=== PATIENT | male | born 1990 | race Caucasian/White ===

== ENCOUNTER 2016-10-21 20:00 | Inpatient (IN) | payer OTHER ==
--- NOTE | ~2016-10-21 | PN ---
Unit #: [id number] #: [id number] Patient: CORNELIA LYNNE [id number] [facility] [address] [place] [address] [id number] MR#: [id number] NAME: CORNELIA LYNNE ROOM: [facility] Age: 26 Sex: M Admission Date: 10/21/2016 : 1990 Attending Physician: Teja Boles M.D. Admitting Physician: Teja Boles M.D. Primary Care Physician: Primary Care Physician Geraldine GALLAGHER NOTES DATE OF SERVICE 10/22/16 DISCUSSION Mr. Cornelia Lynne is a 26-year-old male seen on 10/22/16. Patient interviewed, chart reviewed, I obtained information from nursing staff. Patient compliant, cooperative. Mood sad, dysphoric, flat affect, guarded. Patient seems somewhat anxious, nervous, sad, depressed. Hygiene and grooming fair. COMPLETE REVIEW OF SYSTEMS Unremarkable. MENTAL STATUS EXAMINATION GENERAL APPEARANCE: Patient dressed casually. ATTENTION SPAN AND CONCENTRATION: Poor. Oriented in place and person. MOOD AND AFFECT: Labile. SPEECH: Monotone. THOUGHT PROCESS: Arnold. Patient denied any thoughts of harming others, but having suicidal ideation, guarded, paranoid. RECENT AND REMOTE MEMORY: Poor. INSIGHT AND JUDGMENT: Poor. DIAGNOSES Major depressive disorder, recurrent, rule out bipolar mood disorder Autism spectrum disorder ASSESSMENT/PLAN Advised to continue with current medication. If needed, consider further adjustment on medication. Dictated by... Amanda Jiang/shanita TD: 10/22/2016 21:54 JOB #: [id number] Unit #: [id number] #: [id number] Patient: CORNELIA LYNNE PROGRESS NOTES Page 1 of 1 X Teja Boles MD PROGRESS NOTE
--- NOTE | ~2016-10-21 | PN ---
Unit #: [id number] #: [id number] Patient: CORNELIA OLSEN [id number] [facility] [address] [place] [address] [id number] MR#: [id number] NAME: CORNELIA OLSEN ROOM: P257 Age: 26 Sex: M Admission Date: 10/21/2016 : 1990 Attending Physician: Teja Boles M.D. Admitting Physician: Teja Boles M.D. Primary Care Physician: Primary Care Physician Geraldine RENAE PROGRESS NOTES DATE 10/26/2016 DISCUSSION Cornelia is a 26-year-old male seen on 10/26/2016. The patient interviewed, chart reviewed. Obtained information from nursing staff. The patient was withdrawn, isolative, flat affect guarded but maintain safe behavior reports medication is helping him. Denied any thoughts of harming self or others. MENTAL STATUS EXAMINATION General appearance, the patient dressed casually. Attention span and concentration fair. Oriented to place and person. Mood and affect labile. Speech monotone. Thought process concrete. The patient denied any thoughts of harming self or others. Recent and remote memory poor. Insight and judgement poor. DIAGNOSES Bipolar mood disorder NOS ADHD combined type Autism spectrum disorder ASSESSMENT/PLAN Advise to continue with current medication with a plan to consider discharge next week if patient continues to make progress. Dictated by... Amanda Jiang/marquis TD: 10/29/2016 01:52 JOB #: [id number] Unit #: [id number] #: [id number] Patient: CORNELIA OLSEN PROGRESS NOTES Page 1 of 1 X Teja Boles MD X PROGRESS NOTE
--- NOTE | ~2016-10-21 | PA ---
Unit #: [id number] #: [id number] Patient: CORNELIA OLSEN [id number] [facility] [address] [place] [address] [id number] MR#: [id number] NAME: CORNELIA OLSEN ROOM: [facility] Age: 26 Sex: M Admission Date: 10/21/2016 : 1990 Date of Assessment: 10/21/2016 Attending Physician: Teja Boles M.D. Admitting Physician: Teja Boles M.D. Primary Care Physician: Primary Care Physician No PSYCHIATRIC ASSESSMENT INFORMANTS The patient's reliability, fair; chart reliability, good. CHIEF COMPLAINT Depression. HISTORY OF PRESENT ILLNESS Mr. Rodriguez is a 26-year-old male, presented with the above-mentioned complaint. The patient reports that he has been diagnosed with depression, autism spectrum disorder/Asperger syndrome. The patient has a history of outpatient treatment. Lives at home with mother, father, and older brother. The patient presented, brought by legal guardian for suicidal ideation with a plan to overdose on his medication. The patient is also having extreme anger issue at the President and current state of the government in general, but no homicidal ideation, this is according to the intake report. The patient did not tell to the fha underwriter. The patient denied any substance abuse. The patient was compliant and cooperative during interview. Denied any use of any drugs or alcohol. Reports that he takes his medications regularly, followed by outpatient psychiatrist. There is a history of depression in mother and father. The patient is currently on Anafranil, Vyvanse, Celexa, Saphris, Namenda. PAST PSYCHIATRIC HISTORY Remarkable for history of outpatient treatment. No history of any inpatient treatment. FAMILY HISTORY AND SOCIAL HISTORY The patient has a good support system. No history of abuse. MEDICAL HISTORY Unremarkable for any chronic medical illness. Musculoskeletal; muscle strength and tone, no atrophy or abnormal movement. Gait normal. MEDICATION HISTORY The patient is on Anafranil, Vyvanse, Celexa, Saphris, Namenda. ALLERGIES No known drug allergies. SUBSTANCE ABUSE HISTORY None. REVIEW OF SYSTEMS Unit #: [id number] #: [id number] Patient: CORNELIA OLSEN HEENT: Eyes, clear. Ears, nose, mouth, and throat; clear. CARDIOVASCULAR: Unremarkable. RESPIRATORY: Unremarkable. GI: Unremarkable. : Unremarkable. SKIN: Unremarkable. LYMPH NODE: Unremarkable. NEUROLOGIC: Unremarkable. ENDOCRINE: Unremarkable. HEMATOLOGIC: Unremarkable. ALLERGIC/IMMUNOLOGIC: Unremarkable. MUSCULOSKELETAL: Muscle strength and tone, no atrophy or abnormal movement. Gait normal. MENTAL STATUS EXAMINATION CONSTITUTIONAL: Measurement of vital signs; temperature 98.2, pulse 91, respirations 16, blood pressure 124/73. Height 5 feet 10 inches. GENERAL APPEARANCE: The patient dressed casually. The patient did not show any facial deformity. MUSCULOSKELETAL: Please see above. PSYCHIATRIC EXAMINATION Description of speech, monotone. Description of thought process, concrete. The patient denied any hallucination, but guarded, paranoid, monotone speech, problem with anger, temper, mood lability, suicidal ideation, denied any homicidal ideation. No substance abuse. Description of the patient's judgment; concerning everyday activity, poor. Social situation, poor. Concerning psychiatric condition, poor. Complete mental status examination; oriented in time, place, and person. Recent and remote memory, fair. Attention span and concentration, fair. Language, able to name object and repeat phrases. Fund of knowledge, aware of current event and passive vocabulary intact. Mood and affect, sad and dysphoric. Insight and judgment, fair to poor. ASSETS AND LIABILITIES Assets; the patient articulate, able to take care of his ADL. Liability; history of depression. ADMITTING DIAGNOSES Psychiatric: Major depressive disorder, recurrent, severe, F33.2; rule out bipolar mood disorder; autism spectrum disorder. Secondary diagnosis: Deferred. Medical diagnosis: None. Stressors: Psychosocial stressors. PSYCHIATRIC PLAN AND TREATMENT GOAL 1. Advised to admit the patient on the inpatient unit. Provide safe, supportive, and structured environment. 2. Ordered labs; CBC, CMP, UA, and UDS. 3. The patient to be monitored for any self-harming behavior. 4. The patient to attend all the programing on the inpatient unit. Advised to resume home medication except advised to stop Vyvanse and Namenda. Advised to increase Saphris to 5 mg b.i.d. and increase Celexa to 40 mg daily. Advised to add Depakote for mood stabilization 500 mg Unit #: [id number] #: [id number] Patient: CORNELIA OLSEN b.i.dOsiel Treatment goal to attain euthymic mood, gain insight into his problem, and learn coping skills. DISCHARGE PLAN Plan to stabilize the patient and consider followup in outpatient program. ESTIMATED LENGTH OF STAY 3 to 5 days. Dictated by... Amanda Jiang/lukas TD: 10/23/2016 01:15 JOB #: [id number] PSYCHIATRIC ASSESSMENT Page 1 of 1 X Teja Boles MD X PSYCHIATRIC ASSESSMENT
--- NOTE | ~2016-10-21 | PN ---
Unit #: [id number] #: [id number] Patient: CORNELIA OLSEN [id number] [facility] [address] [place] [address] [id number] I MR#: [id number] NAME: CORNELIA OLSEN ROOM: P257 Age: 26 Sex: M Admission Date: 10/21/2016 : 1990 Attending Physician: Teja Boles M.D. Admitting Physician: Tjea Boles M.D. Primary Care Physician: Primary Care Physician Geraldine RENAE PROGRESS NOTES DATE OF SERVICE: 10/25/2016 ADDENDUM REVIEW OF SYSTEMS Complete review of systems unremarkable. MENTAL STATUS EXAMINATION General appearance, the patient dressed casually. Hygiene and grooming, somewhat poor. Attention span and concentration, fair. Oriented in place and person. Mood and affect; sad, dysphoric, and flat. Speech, monotone. Thought process, concrete. The patient denied any thoughts of harming self or others. Recent and remote memory, poor. Insight and judgment, poor. DIAGNOSES Bipolar mood disorder, not otherwise specified and autism spectrum disorder. ASSESSMENT AND PLAN Advised to continue with current medication with a plan to start Concerta 18 mg in the morning. If needed, consider further adjustment of medication. The patient is currently on combination of Concerta, Saphris, Celexa, Namenda, Depakote, and . Dictated by... Teja Boles M.D. SZC/modl TD: 10/25/2016 17:41 JOB #: [id number] Unit #: [id number] #: [id number] Patient: CORNELIA OLSEN PROGRESS NOTES Page 1 of 1 X Teja Boles MD PROGRESS NOTE
--- NOTE | ~2016-10-21 | PN ---
Unit #: [id number] #: [id number] Patient: CORNELIA OLSEN [id number] [facility] [address] [place] [address] [id number] I MR#: [id number] NAME: CORNELIA OLSEN ROOM: [facility] Age: 26 Sex: M Admission Date: 10/21/2016 : 1990 Attending Physician: Teja Boles M.D. Admitting Physician: Amanda Jiang NOTES DATE OF SERVICE: 10/24/2016 DISCUSSION Mr. Rodriguez is a 26-year-old male, seen on 10/24/2016. The patient compliant and cooperative. Mood, sad and dysphoric. Flat affect. Answered questions appropriately. The patient still having symptoms of depression. Reported having lot of difficulty with focusing and concentration without Vyvanse. REVIEW OF SYSTEMS Complete review of systems unremarkable. MENTAL STATUS EXAMINATION General appearance, the patient dressed casually. Attention span and concentration, poor. Oriented in place and person. Mood and affect; labile, flat, sad, and dysphoric. Speech, monotone. Thought process, concrete. The patient denied any thoughts of harming self or others or any psychotic symptom. Recent and remote memory, poor. Insight and judgment, poor. DIAGNOSES Bipolar mood disorder, not otherwise specified; autism spectrum disorder; and attention-deficit hyperactivity disorder, combined type. ASSESSMENT AND PLAN Advised to continue with current medication with a plan to give a trial with lowest dose of Vyvanse 20 mg daily and monitor for any side effect, psychosis, and depression. Dictated by... Amanda Jiang/lukas TD: 10/24/2016 18:59 JOB #: [id number] Unit #: [id number] #: [id number] Patient: CORNELIA OLSEN BRITTARCHIE ELLIOTT NOTES Page 1 of 1 X Teja Boles MD PROGRESS NOTE
--- NOTE | ~2016-10-21 | PN ---
Unit #: [id number] #: [id number] Patient: CORNELIA OLSEN [id number] [facility] [address] [place] [address] [id number] I MR#: [id number] NAME: CORNELIA OLSEN ROOM: P257 Age: 26 Sex: M Admission Date: 10/21/2016 : 1990 Attending Physician: Teja Boles M.D. Admitting Physician: Teja Boles M.D. Primary Care Physician: Primary Care Physician Geraldine RENAE PROGRESS NOTES DATE 10/24/2016 DISCUSSION Cornelia is a 46-year-old male seen on 10/24/2016. Patient interviewed, chart reviewed, obtained information from nursing staff. Patient answered questions in a monotone voice. Flat affect. Poor eye contact. Reports feeling better. The patient will start Concerta today. Dictated by... Amanda Jiang/mirella TD: 10/27/2016 13:19 JOB #: [id number] [facility] PROGRESS NOTES Page 1 of 1 X Teja Boles MD PROGRESS NOTE
--- NOTE | ~2016-10-21 | HP ---
Unit #: [id number] #: [id number] Patient: CORNELIA OLSEN [id number] [place] [address] [id number] I MR#: [id number] NAME: CORNELIA OLSEN ROOM: [facility] Age: 26 Sex: M Admission Date: 10/21/2016 : 1990 Attending Physician: Teja Boles M.D. Admitting Physician: Teja Boles M.D. Primary Care Physician: Primary Care Physician No HISTORY AND PHYSICAL HISTORY OF PRESENT ILLNESS Cornelia is a 26 year old admitted to [address] [place] [address] with depression and verbalizing wanting to hurt himself. PAST MEDICAL HISTORY 1. High blood pressure 2. Asperger's PAST SURGICAL HISTORY Nothing reported ALLERGIES No known drug allergies. SOCIAL HISTORY He denies cigarettes, alcohol and illicit drug use. FAMILY HISTORY Medically noncontributory. REVIEW OF SYSTEMS CONSTITUTIONAL: No fever or chills. HEENT: Denies any sore throat, ear pain or runny nose. CARDIOVASCULAR: Denies chest pain, irregular heart rhythm or palpitations. CHEST: Denies shortness of breath or cough. No hemoptysis. GASTROINTESTINAL: Denies nausea, vomiting, diarrhea or chronic constipation. ENDOCRINE: Denies history of increased thirst or urination. No recent significant weight loss or gain. GENITOURINARY: Denies dysuria, frequency, or hematuria. SKIN: Denies any rashes. HEMATOLOGIC: Denies history of increased bleeding or bruising. MUSCULOSKELETAL: Denies any hot, swollen joints. No generalized muscle pain. NEUROLOGIC: Denies problems with vision or speech. No frequent, severe headaches. No numbness, tingling or weakness in any extremities. Denies loss of bladder or bowel control. CURRENT MEDICATIONS 1. Celexa 40 mg q day 2. Namenda 20 mg q.a.m. (?) 3. Saphris 5 mg b.i.d. Unit #: [id number] #: [id number] Patient: CORNELIA OLSEN 4. Depakote 500 mg b.i.d. 5. Vasotec 10 mg q day 6. Milk of Magnesia p.r.n. 7. Maalox p.r.n. 8. Tylenol p.r.n. PHYSICAL EXAMINATION GENERAL: Alert, obese, in no apparent distress. VITAL SIGNS: Blood pressure 124/72, heart rate 90, respirations 16, temperature 98.6. WEIGHT: Not recorded. HEIGHT: 5 foot 10 inches. SKIN: Warm and dry without rash or lesion. HEENT: Normocephalic. TMs not viewed. Oral and nasal passages clear. Conjunctivae clear. Pupils equal, round and reactive to light and accommodation. Extraocular movements intact. NECK: Supple without lymphadenopathy or thyromegaly. HEART: Regular rate and rhythm without murmur. LUNGS: Clear. ABDOMEN: Soft, nontender. : Not done. EXTREMITIES: No evidence of cyanosis, clubbing or edema. Moves all extremities without focal deficit. NEUROLOGICAL: Grossly within normal limits. Cranial Nerves: II: Visual mcmahan are intact. III, IV AND : Extraocular movements are intact. Pupils are equal, round and reactive to light. V: Facial sensation is grossly normal. VII: Facial movements and expression are normal. VIII: Auditory acuity grossly intact. IX, X: Uvula is midline. Phonation is normal. XI: Patient shrugs shoulders and turns head normally. XII: Tongue protrudes in the midline. Sensory and Motor Function: Sensory and motor sensation is grossly normal. Motor: moves all extremities well. Coordination: Gait is normal. Deep Tendon Reflexes: Intact. IMPRESSION Psychiatric admission RECOMMENDATIONS PSYCHIATRIC: Per psychiatrist. MEDICAL: I see no contraindications to participating in facility's activities. MEDICAL PROGNOSIS Good. MEDICAL CONDITION Stable. Dictated by... Susy Armando P.A.-C. for Teo Guevara M.D. Unit #: [id number] #: [id number] Patient: CORNELIA OLSEN ANGIE/marquis TD: 10/22/2016 23:56 JOB #: [id number] HISTORY AND PHYSICAL Page 1 of 1 X Susy Armando HISTORY AND PHYSICAL
--- NOTE | ~2016-10-21 | PN ---
Unit #: [id number] #: [id number] Patient: CORNELIA OLSEN [id number] [facility] [address] [place] [address] [id number] I MR#: [id number] NAME: CORNELIA OLSEN ROOM: P257 Age: 26 Sex: M Admission Date: 10/21/2016 : 1990 Attending Physician: Teja Boles M.D. Admitting Physician: Teja Boles M.D. Primary Care Physician: Primary Care Physician Geraldine RENAE PROGRESS NOTES DATE 10/27/2016 DISCUSSION Mr. Rodriguez is a 26-year-old male seen on 10/27/2016. The patient making progress tolerating medication fairly well reports Concerta helped him. Continues to be isolative, guarded, flat affect. Complete review of systems unremarkable. MENTAL STATUS EXAMINATION General appearance, the patient dressed casually. Attention span and concentration fair. Oriented to place and person. Mood and affect labile. Speech monotone. Thought process concrete. The patient denied any thoughts of harming self or others. Recent and remote memory poor. Insight and judgement poor. DIAGNOSES 1. Bipolar mood disorder NOS 2. Autism spectrum disorder ASSESSMENT/PLAN Advise to continue with current medication and therapeutic protocol. If needed consider further adjustment of medication. Dictated by... Amanda Jiang/marquis TD: 10/30/2016 02:53 JOB #: [id number] Unit #: [id number] #: [id number] Patient: CORNELIA OLSEN PROGRESS NOTES Page 1 of 1 X Teja Boles MD PROGRESS NOTE
--- NOTE | ~2016-10-21 | PN ---
Unit #: [id number] #: [id number] Patient: CORNELIA OLSEN [id number] [facility] [address] [place] [address] [id number] I MR#: [id number] NAME: CORNELIA OLSEN ROOM: [facility] Age: 26 Sex: M Admission Date: 10/21/2016 : 1990 Attending Physician: Teja Boles M.D. Admitting Physician: Teja Boles M.D. Primary Care Physician: Primary Care Physician Geraldine GALLAGHER NOTES DATE OF SERVICE: 10/23/2016 DISCUSSION Mr. Rodriguez is a 46-year-old male, seen on 10/23/2016. The patient interviewed, chart reviewed, and obtained information from nursing staff. The patient was guarded, paranoid, withdrawn, isolative, but able to maintain safe behavior. The patient is tolerating medication fairly well, currently on Depakote. Talked to the patient's mom over the phone and explained about his treatment. The patient's family was ordered a regular visitation. No side effects from medication. REVIEW OF SYSTEMS Complete review of systems unremarkable. MENTAL STATUS EXAMINATION General appearance; the patient dressed casually. Attention span and concentration, poor. Oriented in place and person. Mood and affect; sad, dysphoric, flat. Speech, monotone. Thought process, concrete. The patient denied any thoughts of harming self or others, but still somewhat guarded, withdrawn, isolative, paranoid. Recent and remote memory, poor. Insight and judgment, poor. DIAGNOSES 1. Bipolar mood disorder, not otherwise specified. 2. History of attention deficit hyperactivity disorder, combined type. 3. Autism spectrum disorder. ASSESSMENT/PLAN Advised to continue with current medication and therapeutic protocol. If needed, consider further adjustment of medication and check Depakote and ammonia level on Friday. If needed, consider low dose of Concerta or Vyvanse, but we will try to avoid as per as possible. Dictated by... Amanda Jiang/eliseol TD: 10/23/2016 23:42 JOB #: [id number] Unit #: [id number] #: [id number] Patient: CORNELIA OLSEN [facility] PROGRESS NOTES Page 1 of 1 X Teja Boles MD PROGRESS NOTE
--- NOTE | ~2016-10-21 | DS ---
Unit #: [id number] #: [id number] Patient: CORNELIA OLSEN [id number] [facility] [address] [place] [address] [id number] MR#: [id number] NAME: CORNELIA OLSEN ROOM: [facility] Age: 26 Sex: M Admission Date: 10/21/2016 : 1990 Discharge Date: 10/28/2016 Attending Physician: Teja Boles M.D. Primary Care Physician: Primary Care Physician No DISCHARGE SUMMARY REASON FOR ADMISSION Psychosis, mood lability. HOSPITAL COURSE The patient was admitted to inpatient unit on 10/21/2016 and discharged on 10/28/2016. The patient was treated on the inpatient unit with group therapy, medication management, family therapy, and structured milieu. The patient was responsive to the medication and showed improvement. Subsequently, the patient was discharged with a plan to follow up in outpatient program. DISCHARGE MEDICATIONS Vasotec 10 mg daily for hypertension, Celexa 40 mg daily for depression, Depakote 500 mg b.i.d. for mood stabilization, Saphris 10 mg sublingual at bedtime for psychosis, and Concerta 18 mg in the morning for ADHD symptoms. DISCHARGE DIAGNOSES Psychiatric: Mood disorder, recurrent, depressed, F31.9; autism spectrum disorder, F84.0. Secondary diagnosis: Deferred. Medical diagnosis: None. Stressors: Psychosocial stressors. DISCHARGE INSTRUCTIONS The patient to follow up in outpatient clinic as per social media senior associate. CONDITION ON DISCHARGE The patient was pleasant and cooperative. Denied any psychotic symptom or any suicidal ideation. PROGNOSIS Guarded. DIET AND ACTIVITY As tolerated. Dictated by... Teja Boles M.D. Unit #: [id number] #: [id number] Patient: CORNELIA OLSEN SZC/modl TD: 10/29/2016 20:07 JOB #: [id number] DISCHARGE SUMMARY Page 1 of 1 X Teja Boles MD X DISCHARGE SUMMARY
[2016-10-22 09:41] LABS: BASOPHIL% 0.4 % (0-2.5); EOSINOPHIL# 0.1 X10e3 (0-0.7); EOSINOPHIL% 1.5 % (0.0-7.0); HEMATOCRIT 44.2 % (38.0-50.0); HEMOGLOBIN 14.6 gm/dL (13.0-16.0); LYMPHOCYTE# 3.6 X10e3 (1.0-3.5); LYMPHOCYTE% 39.9 % (17.0-45.0); MEAN CELL VOLUME 96.4 FL (83-96); MEAN CORPUSCULAR HEMOGLOBIN 31.9 PG (28-34); MEAN CORPUSCULAR HGB CONC 33.1 g/dL (30-36); MONOCYTE% 10.8 % (3.0-12.0); NEUTROPHIL# 4.2 X10e3 (1.5-7.1); NEUTROPHIL% 47.4 % (40-75); PLATELET COUNT 267 X10e3 (140-420); RED BLOOD COUNT 4.59 X10e (3.90-5.60); RED CELL DISTRIBUTION WIDTH 13.5 % (11.0-15.5); WHITE BLOOD COUNT 8.9 X10e3 (4.0-10.5)
[2016-10-22 09:49] LABS: DIFF IND NO
[2016-10-22 10:35] LABS: ALBUMIN SERUM 4.1 g/dL (3.5-5.0); BILIRUBIN,TOTAL 0.4 mg/dL (0.2-2.0); BUN/CREATININE RATIO 18.75; CALCIUM SERUM 9.3 mg/dL (8.4-10.2); CREATININE SERUM 0.8 mg/dL (0.6-1.4); GLOM FILT RATE Estimated 124.2 mL/min (>60); POTASSIUM 4.4 mmol/L (3.5-5.1); PROTEIN TOTAL SERUM 6.7 g/dL (6.0-8.3)
[2016-10-22 14:42] LABS: URINE APPEARANCE CLEAR; URINE BILIRUBIN NEG (NEG); URINE BLOOD NEG (NEG); URINE COLOR YELLOW; URINE GLUCOSE NEG (NEG); URINE KETONE NEG (NEG); URINE LEUKOCYTE ESTERASE NEG (NEG); URINE NITRATE NEG (NEG); URINE PH 5.5 (5-8); URINE PROTEIN NEG (NEG); URINE SPECIFIC GRAVITY 1.027 (1.003-1.035); URINE UROBILINOGEN 0.2 MG/DL (NEG)
[2016-10-22 15:34] LABS: AMPHETAMINE POS (NEG); BARBITURATES NEG (NEG); BENZODIAZEPINES NEG (NEG); COCAINE NEG (NEG); MARIJUANA NEG (NEG); OPIATES NEG (NEG); TRICYCLIC ANTIDEPRESSANTS NEG (NEG); U METHADONE NEG (NEG)
== END 2016-10-28 10:45 | disposition home or self-care (01) | DRG 885 ==
LOC: P2L 22:31
PROVIDERS: Psychiatry & Neurology Psychiatry
DX: F31.9 Bipolar disorder, unspecified (principal); R45.851 Suicidal ideations; F84.5 Asperger's syndrome; F90.2 Attention-deficit hyperactivity disorder, combined type
CPT/HCPCS: 80053; 80164; 80307; 81003; 82140; 85025